=== PATIENT | male | born 1965 | race Caucasian/White ===

== ENCOUNTER 2021-11-03 10:25 | Emergency (ER) | payer OTHER ==
[~2021-11-03] VITALS: Ht 190.5 cm; Wt 181.4 kg
[~2021-11-03 10:25] MED LIST: HYDACE5 PO; PROM25 PO; RXPROM25 PO
[2021-11-03] MEDS ORDERED: CEPH500 PO ×2 (13:22→13:47)
== END 2021-11-03 13:48 | disposition home or self-care (01) ==
LOC: ER 10:25
DX: S61.215A Laceration without foreign body of left ring finger without damage to nail, initial encounter (principal); Z23 Encounter for immunization; W23.0XXA Caught, crushed, jammed, or pinched between moving objects, initial encounter
CPT/HCPCS: 12002; 73140; 90471; 90714; 99283-25